=== PATIENT | female | born 1940 | race Caucasian/White ===

== ENCOUNTER 2016-12-30 04:57 | Observation (INO) | payer OTHER ==
[~2016-12-30] VITALS: Ht 162.6 cm; Wt 75.0 kg
[2016-12-30] VITALS (8 sets, daily range): BP systolic 135–152; BP diastolic 65–78; PULSE 61–87; RESP 14–19; TEMP 97.5–98.1; O2SAT 96–100
[~2016-12-30 04:57] MED LIST: CYCL-36 PO
[2016-12-30] MEDS ORDERED: MORPHINE SULFATE 4 MG/ML INJ IV PUSH ONE (05:15)
[2016-12-30] MEDS ORDERED: SODIUM CHLORID 0.9% 500 ML INJ 500 ML IV ONE (05:15)
[2016-12-30] MEDS ORDERED: NITROGLYCERIN 0.4 MG SL 25 TABS/BTL SL ONE (05:15)
[2016-12-30] MEDS ORDERED: SODIUM CHLORIDE 0.9% FLUSH 10 ML FLUSH IVF PRN (05:15)
[2016-12-30 05:34] LABS: AUTOMATED NEUTROPHIL # 3.3 TH/MM3 (1.8-7.7); BASOPHIL % 0.6 % (0.0-2.0); EOSINOPHIL # 0.2 TH/MM3 (0-0.4); EOSINOPHIL % 3.5 % (0.0-4.0); HEMATOCRIT 37.9 % (35.0-46.0); HEMO FLAGS DIFF FINAL; LYMPH % 29.6 % (9.0-44.0); LYMPHOCYTE # 1.7 TH/MM3 (1.0-4.8); MEAN CELL VOLUME 85.2 FL (80.0-100.0); MEAN CORPUSCULAR HEMOGLOBIN 29.6 PG (27.0-34.0); MEAN CORPUSCULAR HGB CONC 34.8 % (32.0-36.0); MONO % 8.9 % (0.0-8.0); NEUT % 57.4 % (16.0-70.0); PLATELET COUNT 222 TH/MM3 (150-450); RED BLOOD COUNT 4.45 MIL/MM3 (4.00-5.30); RED CELL DISTRIBUTION WIDTH 13.9 % (11.6-17.2); WHITE BLOOD COUNT 5.7 TH/MM3 (4.0-11.0)
[2016-12-30] MEDS ORDERED: ONDANSETRON HCL 4 MG/2 ML VIAL ONE (05:36)
--- NOTE | 2016-12-30 05:36 | PD ---
HPI Chief Complaint: Chest Pain Time Seen by Provider: 05:03 Travel History International Travel<30 days: No Contact w/Intl Traveler<30days: No Traveled to known affect area: No History of Present Illness HPI 76 year-old woman who presents to the emergency department complaining that she woke up with midsternal chest pain tonight. States pain radiates into the left arm. She's had some persistent pain in the left shoulder prior to this. States she's had one previous episode about a year or so ago with a told her she had some element inflammation behind her chest wall. She states she had a stress test done at that time. She otherwise has been feeling generally well prior to the onset of symptoms. Doses some shortness of breath with this. No other complaints. History Past Medical History Narrative Medical Migraines Tetanus Vaccination: > 5 Years Influenza Vaccination: No Menopausal: Yes Social History Alcohol Use: Yes Tobacco Use: No Allergies-Medications (Allergen,Severity, Reaction): Coded Allergies: Lipitor (Verified Allergy, Unknown, 12/30/16) rash Reported Meds & Prescriptions Reported Meds & Active Scripts Active No Active Prescriptions or Reported Medications Review of Systems Except as stated in HPI: all other systems reviewed are Neg Physical Exam Narrative GENERAL: Well-appearing 76 year-old woman, no acute distress. SKIN: Focused skin assessment warm/dry. NECK: Trachea midline. No JVD. CARDIOVASCULAR: Regular rate and rhythm. No murmur appreciated. RESPIRATORY: No accessory muscle use. Clear to auscultation. Breath sounds equal bilaterally. GASTROINTESTINAL: Abdomen soft, mild right upper quadrant tenderness to palpation. No rebound or guarding. MUSCULOSKELETAL: No obvious deformities. No edema. NEUROLOGICAL: Awake and alert. No obvious cranial nerve deficits. Motor grossly within normal limits. Normal speech. PSYCHIATRIC: Appropriate mood and affect; insight and judgment normal. Data Data Last Documented VS Vital Signs Date Time Temp Pulse Resp B/P Pulse Ox O2 Delivery O2 Flow Rate FiO2 12/30/16 05:07 71 18 99 Room Air 12/30/16 05:03 97.5 152/65 Orders Electrocardiogram (12/30/16 05:12) Ckmb (Isoenzyme) Profile (12/30/16 05:12) Complete Blood Count With Diff (12/30/16 05:12) Comprehensive Metabolic Panel (12/30/16 05:12) Magnesium (Mg) (12/30/16 05:12) Prothrombin Time / Inr (Pt) (12/30/16 05:12) Act Partial Throm Time (Ptt) (12/30/16 05:12) Troponin I (12/30/16 05:12) Lipase (12/30/16 05:12) Chest, Single Ap (12/30/16 05:12) Ecg Monitoring (12/30/16 05:12) Bilateral Bp Monitoring (12/30/16 05:12) Iv Access Insert/Monitor (12/30/16 05:12) Oximetry (12/30/16 05:12) Oxygen Administration (12/30/16 05:12) Sodium Chloride 0.9% Flush (Ns Flush) (12/30/16 05:15) Sodium Chlorid 0.9% 500 Ml Inj (Ns 500 M (12/30/16 05:15) Morphine Inj (Morphine Inj) (12/30/16 05:15) Nitroglycerin Sl (Nitrostat Sl) (12/30/16 05:15) Us Abdomen Gallbladder (12/30/16 ) MDM Medical Decision Making Medical Screen Exam Complete: Yes Emergency Medical Condition: Yes Differential Diagnosis Gastritis, cholecystitis, pericarditis, ACS, PE, other Narrative Course Medical decision making INITIAL: This 76 year-old woman who presents to the emergency department with chest pain. She looks well. She has some right upper quadrant tenderness. Suspect this is GI in origin, likely not cholecystitis though. We'll check labs , ultrasound of the gallbladder, chest x-ray, likely chest pain Center for serial cardiac enzymes and further evaluation. Scripts No Active Prescriptions or Reported Meds Rg Drake MD December 30, 2016 05:35
[2016-12-30 05:44] LABS: APTT (PATIENT) 26.5 SEC (24.3-30.1); INTERNATIONAL NORMALIZED RATIO 0.9 RATIO; PROTHROMBIN TIME - PATIENT 10.3 SEC (9.8-11.6)
[2016-12-30] MEDS ORDERED: ONDANSETRON HCL 4 MG/2 ML VIAL IV ONE (05:45)
--- NOTE | 2016-12-30 05:49 | RADRPT ---
EXAM DATE/TIME: 12/30/2016 05:35 [facility] COMPARISON: CHEST SINGLE AP, April 15, 2016, 13:35. INDICATIONS : Chest pain. MEDICAL HISTORY : None. SURGICAL HISTORY : None. ENCOUNTER: Initial ACUITY: 1 day PAIN SCORE: 6/10 LOCATION: Bilateral chest FINDINGS: A single view of the chest demonstrates the lungs to be symmetrically aerated without evidence of mas s, infiltrate or effusion. The cardiomediastinal contours are unremarkable. Osseous structures are intact. CONCLUSION: No acute disease. Vinod Hare MD on December 30, 2016 at 5:47 Board Certified Radiologist. This report was verified electronically.
[2016-12-30 06:08] LABS: ANION GAP 8 MEQ/L (5-15); AST (GOT) 25 U/L (15-37); BICARBONATE 26.8 MEQ/L (21.0-32.0); BLOOD UREA NITROGEN 14 MG/DL (7-18); CHLORIDE 108 MEQ/L (98-107); GLOMERULAR FILTRATION RATE 92 ML/MIN (>89); MAGNESIUM 1.8 MG/DL (1.5-2.5); POTASSIUM 3.5 MEQ/L (3.5-5.1); SODIUM (NA) 143 MEQ/L (136-145)
[2016-12-30 06:13] LABS: ALKALINE PHOSPHATASE 63 U/L (45-117); ALT (GPT) 22 U/L (10-53); TOTAL BILIRUBIN ADULT 0.6 MG/DL (0.2-1.0)
[2016-12-30 06:20] LABS: CREATINE KINASE 91 U/L (26-192)
--- NOTE | 2016-12-30 06:50 | RADRPT ---
EXAM DATE/TIME: 12/30/2016 06:05 [facility] COMPARISON: No previous studies available for comparison. INDICATIONS : Right upper quadrant pain. MEDICAL HISTORY : Hypercholesterolemia. Migraines. RUQ pain. Nausea. SURGICAL HISTORY : Appendectomy. section. Back. ENCOUNTER: Initial ACUITY: 1 day PAIN SCORE: 8/10 LOCATION: Right upper quadrant MEASUREMENTS: LIVER: 20.3 cm length COMMON DUCT: 4 mm RIGHT KIDNEY: 11.4 x 4.2 x 4.5 cm FINDINGS: LIVER: Diffuse echogenic without focal lesion or ductal dilatation. Complex cyst in the left lobe measures 59 x 48 x 71 mm. The cysts contain septations. COMMON DUCT: No intraluminal mass or stone visualized. GALLBLADDER: Contains multiple mobile stones, demonstrates wall thickening and minimal pericholecystic fluid. Gal lbladder wall measures 4 mm. PANCREAS: Not well seen due to overlying bowel gas. RIGHT KIDNEY: No evidence of hydronephrosis, stone, or mass. CONCLUSION: 1. Cholelithiasis with gallbladder wall thickening and normal pericholecystic fluid. Acute cholecysti tis cannot be excluded. 2. Nonvisualization of the pancreas. 3. Complex cyst in the liver measures 7.1 cm. Vinod Hare MD on December 30, 2016 at 6:47 Board Certified Radiologist. This report was verified electronically.
--- NOTE | 2016-12-30 08:07 | PD ---
Data Data Last Documented VS Vital Signs Date Time Temp Pulse Resp B/P Pulse Ox O2 Delivery O2 Flow Rate FiO2 12/30/16 08:00 68 14 142/67 99 Room Air 12/30/16 06:33 98.1 Orders Electrocardiogram (12/30/16 05:12) Ckmb (Isoenzyme) Profile (12/30/16 05:12) Complete Blood Count With Diff (12/30/16 05:12) Comprehensive Metabolic Panel (12/30/16 05:12) Magnesium (Mg) (12/30/16 05:12) Prothrombin Time / Inr (Pt) (12/30/16 05:12) Act Partial Throm Time (Ptt) (12/30/16 05:12) Troponin I (12/30/16 05:12) Lipase (12/30/16 05:12) Chest, Single Ap (12/30/16 05:12) Ecg Monitoring (12/30/16 05:12) Bilateral Bp Monitoring (12/30/16 05:12) Iv Access Insert/Monitor (12/30/16 05:12) Oximetry (12/30/16 05:12) Oxygen Administration (12/30/16 05:12) Sodium Chloride 0.9% Flush (Ns Flush) (12/30/16 05:15) Sodium Chlorid 0.9% 500 Ml Inj (Ns 500 M (12/30/16 05:15) Morphine Inj (Morphine Inj) (12/30/16 05:15) Nitroglycerin Sl (Nitrostat Sl) (12/30/16 05:15) Us Abdomen Gallbladder (12/30/16 ) Ondansetron Inj (Zofran Inj) (12/30/16 05:45) Ondansetron Inj (Zofran Inj) (12/30/16 05:36) Consult General Surgery (12/30/16 ) Admit Order (Ed Use Only) (12/30/16 ) Labs Laboratory Tests Test 12/30/16 05:25 White Blood Count 5.7 TH/MM3 Red Blood Count 4.45 MIL/MM3 Hemoglobin 13.2 GM/DL Hematocrit 37.9 % Mean Corpuscular Volume 85.2 FL Mean Corpuscular Hemoglobin 29.6 PG Mean Corpuscular Hemoglobin 34.8 % Concent Red Cell Distribution Width 13.9 % Platelet Count 222 TH/MM3 Mean Platelet Volume 9.0 FL Neutrophils (%) (Auto) 57.4 % Lymphocytes (%) (Auto) 29.6 % Monocytes (%) (Auto) 8.9 % Eosinophils (%) (Auto) 3.5 % Basophils (%) (Auto) 0.6 % Neutrophils # (Auto) 3.3 TH/MM3 Lymphocytes # (Auto) 1.7 TH/MM3 Monocytes # (Auto) 0.5 TH/MM3 Eosinophils # (Auto) 0.2 TH/MM3 Basophils # (Auto) 0.0 TH/MM3 CBC Comment DIFF FINAL Differential Comment Prothrombin Time 10.3 SEC Prothromb Time International 0.9 RATIO Ratio Activated Partial 26.5 SEC Thromboplast Time Sodium Level 143 MEQ/L Potassium Level 3.5 MEQ/L Chloride Level 108 MEQ/L Carbon Dioxide Level 26.8 MEQ/L Anion Gap 8 MEQ/L Blood Urea Nitrogen 14 MG/DL Creatinine 0.63 MG/DL Estimat Glomerular Filtration 92 ML/MIN Rate Random Glucose 118 MG/DL Calcium Level 8.6 MG/DL Magnesium Level 1.8 MG/DL Total Bilirubin 0.6 MG/DL Aspartate Amino Transf 25 U/L (AST/SGOT) Alanine Aminotransferase 22 U/L (ALT/SGPT) Alkaline Phosphatase 63 U/L Total Creatine Kinase 91 U/L Troponin I LESS THAN 0.02 NG/ML Total Protein 7.0 GM/DL Albumin 3.6 GM/DL Lipase 145 U/L [facility] Supervised Visit with EDE: No Narrative Course Patient care assumed from Dr. Drake at 0700. This is a 76-year-old female presents with epigastric pain. Concerns are for ACS versus cholecystitis. According to the patient the patient's mid sternal chest pain has been radiating to left upper extremity started approximately 0200. So she was mild nausea without vomiting and endorses some shortness of breath. She does have a history of hyperlipidemia. She did have a little bit of epigastric tenderness on Dr. Drake exam which is why the ultrasound was ordered: Last 24 hours Impressions Chest X-Ray 12/30/16 0512 Signed Impressions: Service Date/Time: Friday, December 30, 2016 05:35 - CONCLUSION: No acute disease. Vinod Hare MD Gall Bladder Ultrasound 12/30/16 0000 Signed Impressions: Service Date/Time: Friday, December 30, 2016 06:05 - CONCLUSION: 1. Cholelithiasis with gallbladder wall thickening and normal pericholecystic fluid. Acute cholecystitis cannot be excluded. 2. Nonvisualization of the pancreas. 3. Complex cyst in the liver measures 7.1 cm. Vinod Hare MD Patient was discussed with Dr. Rm for admission for chest pain. Dr. Salas is already on board was counseled to Dr. Drake. Patient on my exam is stable has no complaints currently. She agrees with admission. Diagnosis Primary Impression: Chest pain Qualified Code: R07.9 - Chest pain, unspecified type Additional Impression: Epigastric pain Admitting Information Admitting Physician Requests: Observation Scripts No Active Prescriptions or Reported Meds Condition: Stable Juvenal Gandara MD December 30, 2016 08:07
[2016-12-30] MEDS ORDERED: SODIUM CHLORIDE 0.9% FLUSH 10 ML FLUSH IV FLUSH PRN (08:30)
[2016-12-30] MEDS: SODIUM CHLORIDE 0.9% FLUSH 10 ML FLUSH IV FLUSH SCH ×2 (09:37→20:16)
--- NOTE | 2016-12-30 09:48 | EKG ---
Date Performed: 12/30/2016 Time Performed: 05:05:07 PTAGE: 76 years EKG: Sinus rhythm NORMAL ECG PREVIOUS TRACING : 04/15/2016 12.34 DOCTOR: Ana Dawn Interpretating Date/Time 12/30/2016 09:45:54
[2016-12-30] MEDS: POTASSIUM CHLORIDE INJ 10 MEQ in DEXT 5%-NACL 0.9% 1000 ML INJ 1,000 ML IV SCH (10:56)
--- NOTE | 2016-12-30 11:43 | HHI.HP ---
[facility] Service [facility] Primary Care Physician Unknown Admission Diagnosis Chest pain, Epigastric Pain Diagnoses: Chief Complaint: Pain epigastric pain Travel History International Travel<30 Days: No Contact w/Intl Traveler <30 Da: No Traveled to Known Affected Are: No History of Present Illness Patient is a 76-year-old male with no significant past medical history who around 1 AM this morning started experiencing epigastric pain radiating to the chest associated with some dry heaves nausea but no vomiting. Patient states that the pain radiated to the left shoulder and was relieved by place ice pack. Patient was unable to sit and stand there was no diarrhea no fever no diaphoresis. Patient called EMS and was brought in here and admitted for further evaluation. Denies any recent fever. Denies any reflux symptoms. Bowel movement has been regular. On looking that patient states that this occurred about a year ago on looking back at the EMR patient was here a year ago for the same symptoms myocardial perfusion study was negative. 12-lead EKG on admission was normal sinus rhythm troponin negative. An ultrasound shows positive for gallstones. Review of Systems Constitutional: DENIES: Fever, Weight loss, Chills, Change in appetite Eyes: DENIES: Blurred vision, Double Vision Ears, nose, mouth, throat: DENIES: Tinnitus, Ear Pain, Epistaxis, Odynophagia Respiratory: DENIES: Cough, Hemoptysis, Sputum production, Shortness of breath Cardiovascular: DENIES: Chest pain, Palpitations, Dyspnea on Exertion, Lower Extremity Edema, Orthopnea Gastrointestinal: DENIES: Black stools, Bloody stools, Difficulty Swallowing, Anorexia Genitourinary: DENIES: Urgency, Hematuria, Vaginal discharge Musculoskeletal: COMPLAINS OF: Joint pain (shoulder pain), DENIES: Stiffness Integumentary: DENIES: Pruritus Hematologic/lymphatic: DENIES: Bruising Immunologic/allergic: DENIES: Urticaria Neurologic: DENIES: Headache, Speech Problems, Tremor Psychiatric: DENIES: Suicidal Ideation, Homicidal Ideation Past Family Social History Past Medical History No history of hypertension, diabetes, hyperlipidemia Past Surgical History None Reported Medications none Allergies: Coded Allergies: Lipitor (Verified Allergy, Unknown, 12/30/16) rash Family History Positive family history of colon cancer mother, sister sister has history of breast cancer Social History Nonsmoker Occasional wine or beer Physical Exam Vital Signs Vital Signs Date Time Temp Pulse Resp B/P Pulse Ox O2 Delivery O2 Flow Rate FiO2 12/30/16 11:06 97.9 67 18 148/65 96 12/30/16 11:04 78 12/30/16 08:00 68 14 142/67 99 Room Air 12/30/16 06:37 18 12/30/16 06:37 18 12/30/16 06:33 98.1 87 18 150/65 100 Room Air 12/30/16 06:33 100 Room Air 12/30/16 06:33 98 Room Air 12/30/16 05:07 71 18 99 Room Air 12/30/16 05:03 97.5 71 18 152/65 100 Physical Exam GENERAL: This is a well-nourished, well-developed patient, in no apparent distress. SKIN: No rashes, ecchymoses or lesions. Cool and dry. HEAD: Atraumatic. Normocephalic. No temporal or scalp tenderness. EYES: Pupils equal round and reactive. Extraocular motions intact. No scleral icterus. No injection or drainage. ENT: Nose without bleeding, purulent drainage or septal hematoma. Throat without erythema, tonsillar hypertrophy or exudate. Uvula midline. Airway patent. NECK: Trachea midline. No JVD or lymphadenopathy. Supple, nontender, no meningeal signs. CARDIOVASCULAR: Regular rate and rhythm without murmurs, gallops, or rubs. RESPIRATORY: Clear to auscultation. Breath sounds equal bilaterally. No wheezes , rales, or rhonchi. GASTROINTESTINAL: positive epigastric tenderness No guarding. MUSCULOSKELETAL: Extremities without clubbing, cyanosis, or edema. No joint tenderness, effusion, or edema noted. No calf tenderness. Negative Homans sign bilaterally. NEUROLOGICAL: Awake and alert. Cranial nerves II through XII intact. Motor and sensory grossly within normal limits. Five out of 5 muscle strength in all muscle groups. Normal speech. Laboratory Laboratory Tests Test 12/30/16 05:25 White Blood Count 5.7 Red Blood Count 4.45 Hemoglobin 13.2 Hematocrit 37.9 Mean Corpuscular Volume 85.2 Mean Corpuscular Hemoglobin 29.6 Mean Corpuscular Hemoglobin 34.8 Concent Red Cell Distribution Width 13.9 Platelet Count 222 Mean Platelet Volume 9.0 Neutrophils (%) (Auto) 57.4 Lymphocytes (%) (Auto) 29.6 Monocytes (%) (Auto) 8.9 Eosinophils (%) (Auto) 3.5 Basophils (%) (Auto) 0.6 Neutrophils # (Auto) 3.3 Lymphocytes # (Auto) 1.7 Monocytes # (Auto) 0.5 Eosinophils # (Auto) 0.2 Basophils # (Auto) 0.0 CBC Comment DIFF FINAL Differential Comment Prothrombin Time 10.3 Prothromb Time International 0.9 Ratio Activated Partial 26.5 Thromboplast Time Sodium Level 143 Potassium Level 3.5 Chloride Level 108 Carbon Dioxide Level 26.8 Anion Gap 8 Blood Urea Nitrogen 14 Creatinine 0.63 Estimat Glomerular Filtration 92 Rate Random Glucose 118 Calcium Level 8.6 Magnesium Level 1.8 Total Bilirubin 0.6 Aspartate Amino Transf 25 (AST/SGOT) Alanine Aminotransferase 22 (ALT/SGPT) Alkaline Phosphatase 63 Total Creatine Kinase 91 Troponin I LESS THAN 0.02 Total Protein 7.0 Albumin 3.6 Lipase 145 Result Diagram: 12/30/1625 12/30/1625 Imaging Last Impressions Chest X-Ray 12/30/1612 Signed Impressions: Service Date/Time: Friday, December 30, 2016 05:35 - CONCLUSION: No acute disease. Vinod Hare MD Gall Bladder Ultrasound 12/30/16 0000 Signed Impressions: Service Date/Time: Friday, December 30, 2016 06:05 - CONCLUSION: 1. Cholelithiasis with gallbladder wall thickening and normal pericholecystic fluid. Acute cholecystitis cannot be excluded. 2. Nonvisualization of the pancreas. 3. Complex cyst in the liver measures 7.1 cm. Vinod Hare MD 12-lead EKG shows normal sinus rhythm no acute ST-T wave changes Assessment and Plan Assessment and Plan 76-year-old female looks younger for stated age who presented with Atypical chest pain started out as epigastric pain radiating to the chest and left shoulder with no significant past medical history= doubt cardiac 12-lead EKG shows normal sinus rhythm troponin negative will get another set of troponin GB pathology- cholecystitis with gallstones. general surgery consult for evaluation We'll keep patient nothing by mouth for now. PPI for GI prophylaxis Karina Rm MD December 30, 2016 11:43 Karina Rm MD December 30, 2016 11:43
--- NOTE | 2016-12-30 12:27 | PD.CONS ---
HPI Service General Surgery Consult Requested By Dr. Drake Reason for Consult epigastric pain, possible acute cholecystitis Primary Care Physician Unknown History of Present Illness 76 yo F with chest and upper abdominal pain. She describes midsternal, substernal, epigastric pain radiating to LUQ which began suddenly last night and was sharp and severe. She had nausea but no vomiting. She did have some left upper extremity pain which she was unsure if it was related to her recent injury or to this current pain. She had a similar pain one year ago at which time she is evaluated for a cardiac source and stress test was performed at that time which showed no abnormalities and an EF of 54%. She was evaluated here in the emergency department and an ultrasound was performed showing gallstones and wall thickening and minimal pericholecystic fluid. Her pain only improved after the morphine. Review of Systems Constitutional: DENIES: Fever, Chills Eyes: DENIES: Eye inflammation, Eye pain Respiratory: DENIES: Cough Cardiovascular: COMPLAINS OF: Chest pain, DENIES: Lower Extremity Edema Gastrointestinal: COMPLAINS OF: Abdominal pain, Nausea Integumentary: DENIES: Pruritus, Rash Neurologic: DENIES: Localized weakness, Paresthesias Past Family Social History Past Medical History Migraines Past Surgical History Some sort of cerebrovascular surgery Reported Medications None Allergies: Coded Allergies: Lipitor (Verified Allergy, Unknown, 12/30/16) rash Active Ordered Medications Current Medications Medications (Trade) Dose Ordered Sig/[place] Route Start Time Stop Time Status Last Admin (KCl Inj/D5W-NS 1000 ml Inj) 1,005 ml @ 42 mls/hr [id number] IV 12/30/16 09:00 12/30/16 10:56 (NS Flush) 2 ml BID IV FLUSH 12/30/16 09:00 12/30/16 09:37 (NS Flush) 2 ml UNSCH PRN IV FLUSH 12/30/16 08:30 (Protonix Inj) 40 mg Q24H IV PUSH 12/30/16 11:45 Family History Noncontributory Social History Occasional alcohol no tobacco use Physical Exam Vital Signs Vital Signs Date Time Temp Pulse Resp B/P Pulse Ox O2 Delivery O2 Flow Rate FiO2 12/30/16 11:06 97.9 67 18 148/65 96 12/30/16 11:04 78 12/30/16 08:00 68 14 142/67 99 Room Air 12/30/16 06:37 18 12/30/16 06:37 18 12/30/16 06:33 98.1 87 18 150/65 100 Room Air 12/30/16 06:33 100 Room Air 12/30/16 06:33 98 Room Air 12/30/16 05:07 71 18 99 Room Air 12/30/16 05:03 97.5 71 18 152/65 100 Physical Exam GENERAL: Awake and alert. No acute distress. Cooperative. HEAD: Normocephalic. Atraumatic. NECK: Trachea midline. CHEST: Lungs clear to auscultation bilaterally with no wheezing or rhonchi. No respiratory distress. CARDIOVASCULAR: Regular rate and rhythm. ABDOMEN: Soft and nondistended. Mild to moderate pain to deep palpation in the right upper quadrant epigastrium and left upper quadrant. There is some fullness in the right upper quadrant. EXTREMITIES: No cyanosis or edema. SKIN: Warm, dry, nonjaundiced. Laboratory Laboratory Tests Test 12/30/16 05:25 White Blood Count 5.7 Red Blood Count 4.45 Hemoglobin 13.2 Hematocrit 37.9 Mean Corpuscular Volume 85.2 Mean Corpuscular Hemoglobin 29.6 Mean Corpuscular Hemoglobin 34.8 Concent Red Cell Distribution Width 13.9 Platelet Count 222 Mean Platelet Volume 9.0 Neutrophils (%) (Auto) 57.4 Lymphocytes (%) (Auto) 29.6 Monocytes (%) (Auto) 8.9 Eosinophils (%) (Auto) 3.5 Basophils (%) (Auto) 0.6 Neutrophils # (Auto) 3.3 Lymphocytes # (Auto) 1.7 Monocytes # (Auto) 0.5 Eosinophils # (Auto) 0.2 Basophils # (Auto) 0.0 CBC Comment DIFF FINAL Differential Comment Prothrombin Time 10.3 Prothromb Time International 0.9 Ratio Activated Partial 26.5 Thromboplast Time Sodium Level 143 Potassium Level 3.5 Chloride Level 108 Carbon Dioxide Level 26.8 Anion Gap 8 Blood Urea Nitrogen 14 Creatinine 0.63 Estimat Glomerular Filtration 92 Rate Random Glucose 118 Calcium Level 8.6 Magnesium Level 1.8 Total Bilirubin 0.6 Aspartate Amino Transf 25 (AST/SGOT) Alanine Aminotransferase 22 (ALT/SGPT) Alkaline Phosphatase 63 Total Creatine Kinase 91 Troponin I LESS THAN 0.02 Total Protein 7.0 Albumin 3.6 Lipase 145 Result Diagram: 12/30/1652412/30/16524 Imaging Last Impressions Chest X-Ray 12/30/16511 Signed Impressions: Service Date/Time: Friday, December 30, 2016 05:35 - CONCLUSION: No acute disease. Vinod Hare MD Gall Bladder Ultrasound 12/30/16 0000 Signed Impressions: Service Date/Time: Friday, December 30, 2016 06:05 - CONCLUSION: 1. Cholelithiasis with gallbladder wall thickening and normal pericholecystic fluid. Acute cholecystitis cannot be excluded. 2. Nonvisualization of the pancreas. 3. Complex cyst in the liver measures 7.1 cm. Vinod Hare MD Assessment and Plan Assessment and Plan 76-year-old female with chest and upper abdominal pain. Differential includes acute cholecystitis and acute coronary syndrome. Cardiac workup so far has been normal and stress test one year ago was normal. I do think this is probably consistent with acute cholecystitis. I discussed the situation in detail with the patient and she would like to proceed with cholecystectomy. I spoke with Dr. Rm who does not feel this is cardiac in origin. As long as follow-up troponins are normal up to the cholecystectomy. I started on Levaquin and Flagyl. I discussed risks benefits and details of procedure and she desires to proceed. JosueOrion MD December 30, 2016 12:27
[2016-12-30] MEDS: PANTOPRAZOLE SODIUM 40 MG VIAL IV PUSH SCH (13:26)
[2016-12-30] MEDS: LEVOFLOXACIN 750 MG PREMIX INJ 150 ML IV SCH (13:26)
[2016-12-30] MEDS: metroNIDAZOLE 500 MG INJ 100 ML IV SCH ×2 (13:27→20:16)
--- NOTE | 2016-12-30 21:51 | EKG ---
Date Performed: 12/30/2016 Time Performed: 11:47:50 PTAGE: 76 years EKG: Sinus rhythm PROLONGED QT INTERVAL ABNORMAL ECG NO PREVIOUS TRACING DOCTOR: Ana Dawn Interpretating Date/Time 12/30/2016 21:47:53
--- NOTE | 2016-12-30 22:11 | EKG ---
Date Performed: 12/30/2016 Time Performed: 20:43:13 PTAGE: 76 years EKG: Sinus rhythm NORMAL ECG PREVIOUS TRACING : 12/30/2016 11.47 DOCTOR: Ana Dawn Interpretating Date/Time 12/30/2016 22:02:45
[2016-12-31] VITALS (7 sets, daily range): BP systolic 145–164; BP diastolic 72–82; PULSE 57–70; RESP 18–22; TEMP 97.8–98.4; O2SAT 95–100
[2016-12-31] MEDS: metroNIDAZOLE 500 MG INJ 100 ML IV SCH ×2 (05:45→13:47)
--- NOTE | 2016-12-31 07:17 | HHI.PR ---
Subjective Remarks some nausea overnight, no vomiting mild epigastric discomfort Objective Vitals Vital Signs Date Time Temp Pulse Resp B/P Pulse Ox O2 Delivery O2 Flow Rate FiO2 12/31/16 06:53 60 12/31/16 04:21 60 12/31/16 04:08 97.9 60 19 155/72 95 12/30/16 23:19 98.0 72 19 135/70 97 12/30/16 19:30 97.9 74 19 139/68 97 12/30/16 15:00 140/78 12/30/16 15:00 61 12/30/16 11:06 97.9 67 18 148/65 96 12/30/16 11:04 78 12/30/16 08:00 68 14 142/67 99 Room Air I/O 12/30/16 12/30/16 12/30/16 12/31/16 12/31/16 12/31/16 07:00 15:00 23:00 07:00 15:00 23:00 Intake Total 750 ml Output Total 900 ml Balance -150 ml Intake Oral 500 ml IV Total 250 ml Output Urine Total 900 ml Result Diagram: 12/30/16 0525 12/30/16 0525 Imaging Last Impressions Chest X-Ray 12/30/16 0512 Signed Impressions: Service Date/Time: Friday, December 30, 2016 05:35 - CONCLUSION: No acute disease. Vinod Hare MD Gall Bladder Ultrasound 12/30/16 0000 Signed Impressions: Service Date/Time: Friday, December 30, 2016 06:05 - CONCLUSION: 1. Cholelithiasis with gallbladder wall thickening and normal pericholecystic fluid. Acute cholecystitis cannot be excluded. 2. Nonvisualization of the pancreas. 3. Complex cyst in the liver measures 7.1 cm. Vinod Hare MD Objective Remarks awake and alert, NAD anicteric lungs clear regular rhythm abdomen- soft, very mild epigastric tenderness on deep palpation extremities no edema neuro exam- unremarkable A/P Assessment and Plan 76-year-old female looks younge rthanstated age who presented with Cholelithiasis- GS taking her to surgery today Atypical chest pain- non cardiac- troponins, EKG negative Left shoulder pain- this is chronic- on and off for 5-6 months- prescribed some exercises by PCP in the past d/w her OP work up through PCP Karina Rm MD December 31, 2016 07:17
[2016-12-31] MEDS ORDERED: PROPOFOL 200 MG/20 ML AMP IV ONE (08:13)
[2016-12-31] MEDS ORDERED: NEOSTIGMINE METHYLSULFATE 10 MG/10 ML VIAL IV PUSH ONE (08:13)
[2016-12-31] MEDS ORDERED: PHENYLEPH/NS 1000 MCG/10 ML SYR IV ONE (08:14)
[2016-12-31] MEDS ORDERED: ONDANSETRON HCL 4 MG/2 ML VIAL IV PUSH ONE (08:14)
[2016-12-31] MEDS: POTASSIUM CHLORIDE INJ 10 MEQ in DEXT 5%-NACL 0.9% 1000 ML INJ 1,000 ML IV SCH ×2 (08:56→15:18)
[2016-12-31] MEDS: SODIUM CHLORIDE 0.9% FLUSH 10 ML FLUSH IV FLUSH SCH ×2 (09:00→19:52)
[2016-12-31] MEDS: PANTOPRAZOLE SODIUM 40 MG VIAL IV PUSH SCH (11:28)
[2016-12-31] MEDS ORDERED: ACETAMINOPHEN 1000 MG/100 ML VIAL IV ONE (13:28)
[2016-12-31] MEDS ORDERED: BUPIVACAINE/EPINEPHRINE 0.25% 50 ML VIAL ONE (13:29)
--- NOTE | 2016-12-31 13:43 | HHI.PR ---
Subjective Subjective Notes Troponins negative. Proceed with OR for cholecystectomy. Objective Vitals/I&O Vital Signs Date Time Temp Pulse Resp B/P Pulse Ox O2 Delivery O2 Flow Rate FiO2 12/31/16 11:54 98.4 57 22 164/74 100 12/30/16 08:00 Room Air Labs Laboratory Tests Test 12/30/16 19:00 Troponin I LESS THAN 0.02 Radiology Last Impressions Chest X-Ray 12/30/16 0512 Signed Impressions: Service Date/Time: Friday, December 30, 2016 05:35 - CONCLUSION: No acute disease. Vinod Hare MD Gall Bladder Ultrasound 12/30/16 0000 Signed Impressions: Service Date/Time: Friday, December 30, 2016 06:05 - CONCLUSION: 1. Cholelithiasis with gallbladder wall thickening and normal pericholecystic fluid. Acute cholecystitis cannot be excluded. 2. Nonvisualization of the pancreas. 3. Complex cyst in the liver measures 7.1 cm. Vinod Hare MD Josue,Orion NICHOLAS December 31, 2016 13:43
[2016-12-31] MEDS: LEVOFLOXACIN 750 MG PREMIX INJ 150 ML IV SCH (13:52)
--- NOTE | 2016-12-31 14:39 | PD.OP ---
cc: Orion Salas MD Operative Report Date of Surgery: December 31, 2016 Preoperative Diagnosis: (1) Acute calculous cholecystitis Postoperative Diagnosis: (1) Acute calculous cholecystitis Procedure: Laparoscopic cholecystectomy Anesthesia: NUA Surgeon: Orion Salas Microbiology Technologist(s): Jerrell REESE Operation and Findings: Complications: None apparent EBL: 10 cc Operative findings: Mild inflammation of the gallbladder with numerous stones present. Procedure in detail: The patient was taken to the operating room and placed in the supine position. General endotracheal anesthesia was induced. The abdomen was prepped and draped in usual sterile fashion and a surgical timeout was performed to verify correct patient procedure and site. Appropriate perioperative antibiotics were administered. Local anesthetic was injected in the skin and subcutaneous tissue superior to the umbilicus and a 5 mm incision performed. The abdomen was entered using the Optiview 5 mm trocar with direct laparoscopic visualization. The abdomen was then insufflated to 15 mmHg with CO2 gas which the patient tolerated well. Next a 12 mm port was placed in the epigastrium and two 5 mm ports in the right upper quadrant and right lateral abdomen. The patient was placed in reverse Trendelenburg position and turned slightly to the left. Attention was turned to the right upper quadrant and the dome of the gallbladder was grasped and retracted cephalad. The infundibulum was retracted laterally to expose Calot's triangle. Blunt dissection and judicious use of electrocautery was used to expose the cystic duct and the cystic artery directly entering the gallbladder. Two clips were placed proximally on each of these structures and one distally and they were transected. The gallbladder was then removed from the liver bed using electrocautery. Hemostasis was achieved. The gallbladder was then removed from the abdomen using an Endo Catch bag. The clips were in place on the cystic duct and cystic artery stumps with no bleeding or bile leakage. At this point, the abdomen was allowed to desufflate and trochars were removed. The fascia at the 12 mm port site was closed with 0 Vicryl suture. Skin was closed with subcuticular 4-0 Monocryl as well as Dermabond. The patient tolerated the procedure well and was extubated and taken to PACU in stable condition. All sponge and instrument counts were correct. Orion Salas MD December 31, 2016 14:39
[2016-12-31] MEDS ORDERED: OXYC1TAB63 PO (14:40)
[2016-12-31] MEDS ORDERED: MORPHINE SULFATE 4 MG/ML INJ IV PUSH PRN (14:45)
[2016-12-31] MEDS ORDERED: oxyCODONE/ACETAMINOPHEN 5 MG/325 MG TAB PO PRN (14:45)
[2016-12-31] MEDS ORDERED: DO NOT ADM ANY ANTICOAGULANT DRUGS PRN (14:55)
[2016-12-31] MEDS ORDERED: fentaNYL CITRATE 250 MCG/5 ML AMP ONE (15:01)
[2016-12-31] MEDS ORDERED: *ENALAPRILAT 1.25 MG/ML VIAL PERIprocedural Use ONLY ONE (15:36)
[2016-12-31] MEDS: oxyCODONE/ACETAMINOPHEN 5 MG/325 MG TAB PO PRN (16:38)
[2017-01-01] VITALS: BP 135/62; PULSE 91; RESP 17; TEMP 97.2; O2SAT 95
[2017-01-01] MEDS: oxyCODONE/ACETAMINOPHEN 5 MG/325 MG TAB PO PRN ×2 (03:01→08:45)
[2017-01-01 04:00] VITALS: BP 124/60; PULSE 66; RESP 17; TEMP 96.5; O2SAT 95
[2017-01-01 08:00] VITALS: BP 141/73; PULSE 79; RESP 18; TEMP 95.4; O2SAT 94
[2017-01-01] MEDS: POTASSIUM CHLORIDE INJ 10 MEQ in DEXT 5%-NACL 0.9% 1000 ML INJ 1,000 ML IV SCH (08:19)
[2017-01-01] MEDS: SODIUM CHLORIDE 0.9% FLUSH 10 ML FLUSH IV FLUSH SCH (08:48)
--- NOTE | 2017-01-01 09:23 | HHI.PR ---
Subjective Remarks doing great po 100% Objective Vitals Vital Signs Date Time Temp Pulse Resp B/P Pulse Ox O2 Delivery O2 Flow Rate FiO2 01/01/17 08:00 95.4 79 18 141/73 94 01/01/17 04:00 96.5 66 17 124/60 95 01/01/17 00:00 97.2 91 17 135/62 95 12/31/16 20:00 97.8 70 19 163/82 98 12/31/16 15:55 97.6 55 16 160/78 96 Nasal Cannula 2 12/31/16 15:45 54 15 168/79 95 Nasal Cannula 2 12/31/16 15:30 55 15 180/72 95 Nasal Cannula 2 12/31/16 15:15 58 15 171/80 98 Nasal Cannula 3 12/31/16 15:00 69 16 160/74 97 Nasal Cannula 3 12/31/16 14:50 98.3 76 16 166/74 94 Nasal Cannula 3 12/31/16 11:54 98.4 57 22 164/74 100 I/O 12/31/16 12/31/16 12/31/16 01/01/17 01/01/17 01/01/17 06:59 14:59 22:59 06:59 14:59 22:59 Intake Total 700 ml 1140 ml 240 ml Output Total 15 ml 400 ml Balance 685 ml 740 ml 240 ml Intake Oral 240 ml 240 ml IV Total 900 ml Other 700 ml Output Urine Total 400 ml Estimated Blood Loss 15 ml # Voids 0 1 Result Diagram: 12/30/16 0525 12/30/16 0525 Imaging Last Impressions Chest X-Ray 12/30/16 0512 Signed Impressions: Service Date/Time: Friday, December 30, 2016 05:35 - CONCLUSION: No acute disease. Vinod Hare MD Gall Bladder Ultrasound 12/30/16 0000 Signed Impressions: Service Date/Time: Friday, December 30, 2016 06:05 - CONCLUSION: 1. Cholelithiasis with gallbladder wall thickening and normal pericholecystic fluid. Acute cholecystitis cannot be excluded. 2. Nonvisualization of the pancreas. 3. Complex cyst in the liver measures 7.1 cm. Vinod Hare MD Objective Remarks awake and alert, NAD anicteric lungs clear regular rhythm abdomen- soft, nontender, good bowel sounds extremities no edema neuro exam- unremarkable Procedures 12/31- laparoscopic cholecystectomy A/P Assessment and Plan 76-year-old female looks younge rthanstated age who presented with s/p laparoscopic cholecystectomy 12/31- doing very well. cleared for DC by GS for DC. OP ff up Atypical chest pain- non cardiac- troponins, EKG negative Left shoulder pain- this is chronic- on and off for 5-6 months- prescribed some exercises by PCP in the past d/w her OP work up through PCP she expressed concern about family history of pancreatic cancer - d/w her OP ff up to discuss DC home today OP ff up with Dr. Salas' OP ff up in 2 weeks FF up with her PCP- diet regular Activity as tolerated Meds- prn Hydrocodone/APA 5/325 1 tab po q 4 prn for pain FF up as above Karina Rm MD January 01, 2017 09:23
[2017-01-01 11:08] VITALS: O2SAT 98
[2017-01-01] MEDS ORDERED: PANTOPRAZOLE SOD 40 MG DELAYED RELEASE TAB PO SCH (11:30)
== END 2017-01-01 12:11 | disposition home or self-care (01) ==
LOC: NEPC 04:57 → NEDA 08:13 → NEPGCP 09:55 → N07B 12-31 13:17 → N07A 12-31 16:18
PROVIDERS: ADMIT Internal Medicine; ATTEND Internal Medicine
DX: K80.12 Calculus of gallbladder with acute and chronic cholecystitis without obstruction (principal); M25.512 Pain in left shoulder; R07.89 Other chest pain; Z88.8 Allergy status to other drugs, medicaments and biological substances
CPT/HCPCS: 47562; 71010; 76705; 80053; 82550; 82948; 83690; 83735; 84484; 85025; 85610; 85730; 88304; 93005; 96361; 96374; 96375; 99285; C9113; G0378; J0131; J1956; J2270; J2370; J2405; J2710; J3010; J3480; J7040; J7042

== ENCOUNTER 2018-02-11 13:53 | Emergency (ER) | payer OTHER ==
[~2018-02-11] VITALS: Ht 162.6 cm; Wt 70.0 kg
[~2018-02-11 13:53] MED LIST changes: -CYCL-36 PO; +FURO1TAB62 PO
[2018-02-11 14:00] VITALS: BP 147/105; PULSE 73; RESP 16; TEMP 98.7; O2SAT 97
[2018-02-11] MEDS ORDERED: traMADol HCL 50 MG TAB PO ONE (17:15)
[2018-02-11] MEDS ORDERED: KETOROLAC TROMETHAMINE 60 MG/2 ML (IM) VIAL IM ONE (17:15)
--- NOTE | 2018-02-11 17:28 | PD ---
HPI Chief Complaint: Musculoskeletal Complaint Time Seen by Provider: 16:42 Travel History International Travel<30 days: No Contact w/Intl Traveler<30days: No Traveled to known affect area: No History of Present Illness HPI 77-year-old female presents to the emergency room for evaluation of right knee pain and swelling that started yesterday. Patient states she was walking out of the bathroom after having gone swimming and developed sudden onset right knee pain that caused her to lose her balance. She did not actually fall to the ground but states she has not been able to walk since then. Pain is difficult to localize. Worse with any range of motion. States she took a shower earlier today and had a difficult time stepping over the three-inch ledge. She has not taken anything for symptoms. She denies fever, chills, nausea, vomiting, or paresthesias. She denies any chronic medical conditions or daily medications. She is not on blood thinners. PFSH Past Medical History Asthma: No Blood Disorders: No Anxiety: No Depression: No Heart Rhythm Problems: No Cancer: No Cardiovascular Problems: No High Cholesterol: Yes Chemotherapy: No Chest Pain: No Congestive Heart Failure: No COPD: No Diabetes: No Diminished Hearing: No Endocrine: No Genitourinary: No Immune Disorder: No Musculoskeletal: No Neurologic: No Psychiatric: No Reproductive: No Respiratory: No Immunizations Current: Yes Migraines: Yes Radiation Therapy: No Sleep Apnea: No Thyroid Disease: No Menopausal: Yes Past Surgical History Appendectomy: Yes Section: Yes Other Surgery: Yes (back surgery) Social History Alcohol Use: Yes Tobacco Use: No Substance Use: No Allergies-Medications (Allergen,Severity, Reaction): Coded Allergies: atorvastatin (Unverified Allergy, Unknown, 08/01/17) rash Reported Meds & Prescriptions Reported Meds & Active Scripts Active Tramadol (Tramadol HCl) 50 Mg Tab 50 Mg PO Q6H PRN Lasix (Furosemide) 20 Mg Tab 20 Mg PO DAILY Review of Systems Except as stated in HPI: all other systems reviewed are Neg Physical Exam Narrative GENERAL: Well-nourished, well-developed female in no acute distress. Afebrile. SKIN: Focused skin assessment warm/dry. No erythema or ecchymosis HEAD: Normocephalic. EYES: No scleral icterus. No injection or drainage. NECK: Supple, trachea midline. No JVD or lymphadenopathy. CARDIOVASCULAR: Regular rate and rhythm without murmurs, gallops, or rubs. RESPIRATORY: Breath sounds equal bilaterally. No accessory muscle use. MUSCULOSKELETAL: No cyanosis. Moderate effusion of the right knee. 2+ dorsalis pedis pulse. Full extension. Patient can flex to about 70 without significant pain. Data Data Last Documented VS Vital Signs Date Time Temp Pulse Resp B/P (MAP) Pulse Ox O2 Delivery O2 Flow Rate FiO2 02/11/18 14:00 98.7 73 16 147/105 (119) 97 Orders Orders Knee, Complete (4vws) (02/11/18 ) Tramadol (Ultram) (02/11/18 17:15) Ketorolac Inj (Toradol Inj) (02/11/18 17:15) Ed Discharge Order (02/11/18 18:29) [facility] Medical Decision Making Medical Screen Exam Complete: Yes Emergency Medical Condition: Yes Medical Record Reviewed: Yes Differential Diagnosis Effusion, sprain, strain, contusion, dislocation, fracture Narrative Course 77-year-old female presents to the emergency room for evaluation of right knee pain and swelling that started suddenly yesterday. Patient was walking out of the bathroom when she developed sudden onset right knee pain which caused her knee to give out. She did not actually fall. Since then she has had pain with ambulation. She denies paresthesias, fevers. Right lower extremity is neurovascular intact with 2+ dorsalis pedis pulse. Patient has full extension and can flex to about 70 without difficulty. There is no significant erythema , ecchymosis, or increased warmth of the right knee. There is obvious effusion and moderate edema. I suspect inflammatory or osteoarthritis. No suspicion for septic arthritis. X-ray shows effusion with degenerative changes. Patient was given tramadol and low-dose Toradol in the emergency room and discharged with prescription for the same. She was placed in an [place] wrap to help reduce swelling. She was reassured that symptoms will typically resolve with rest, ice , elevation, compression. Told to follow-up with orthopedic surgeon within 1 week if symptoms persist or return sooner for worsening symptoms such as signs of infection. She understands and agrees to plan. Diagnosis Primary Impression: Effusion, right knee Additional Impression: Degenerative joint disease of knee Qualified Codes: M17.11 - Unilateral primary osteoarthritis, right knee Referrals: Primary Care Physician Additional Instructions: Rest and drink plenty of fluids. Tramadol as directed, as needed for pain. Medication may make you drowsy. Do not take with alcohol or while driving. Apply ice to the affected area 20 minutes at a time, 5 times daily. Keep knee wrapped to help with swelling. Also keep the elevated above heart if possible to decrease swelling. Follow up with a primary care physician. Return to emergency room for worsening symptoms, as discussed. Med/Other Pt SpecificInfo: Prescription(s) given Scripts Tramadol (Tramadol) 50 Mg Tab 50 MG PO Q6H Y for PAIN, #12 TAB 0 Refills Prov: Rg Drake MD 02/11/18 Disposition: 01 DISCHARGE HOME Condition: Stable Gina Mcdowell Feb 11, 2018 17:28
--- NOTE | 2018-02-11 18:04 | RADRPT ---
EXAM DATE: 02/11/2018 5:55 PM EDT AGE/SEX: 77 years / Female INDICATIONS: Pain. CLINICAL DATA: This is the patient's initial encounter. Patient reports that signs and symptoms have been present for 2 days and indicates a pain score of 6/10. MEDICAL/SURGICAL HISTORY: None. None. COMPARISON: No prior exams available for comparison. FINDINGS: Knee joint is aligned. No fracture is seen. There is a minimal joint effusion. There is hypertrophic change seen at the medial, lateral and patellofemoral regions. CONCLUSION: Degenerative change. Minimal joint effusion. Electronically signed by: Rocco Ramires MD 02/11/2018 6:02 PM EDT
[2018-02-11] MEDS ORDERED: TRAM50TA PO (18:19)
== END 2018-02-11 19:08 | disposition home or self-care (01) ==
LOC: NEPK 13:53
DX: M25.461 Effusion, right knee (principal); M17.11 Unilateral primary osteoarthritis, right knee; E78.00 Pure hypercholesterolemia, unspecified; Z86.69 Personal history of other diseases of the nervous system and sense organs
CPT/HCPCS: 73564; 96372; 99283; J1885